=== PATIENT | male | born 1955 | race Caucasian/White ===

== ENCOUNTER 2016-11-29 21:52 | Emergency (ER) | payer OTHER ==
[~2016-11-29] VITALS: Ht 180.3 cm; Wt 95.3 kg
[2016-11-29 22:05] VITALS: BP 161/97
[2016-11-29] MEDS ORDERED: Motrin,Rufen800 MG PO (22:24)
== END 2016-11-29 22:16 | disposition home or self-care (01) ==
LOC: ED 21:52
DX: S46.212A Strain of muscle, fascia and tendon of other parts of biceps, left arm, initial encounter (principal); Z90.89 Acquired absence of other organs; Z98.890 Other specified postprocedural states; X58.XXXA Exposure to other specified factors, initial encounter; Y93.89 Activity, other specified; Y92.69 Other specified industrial and construction area as the place of occurrence of the external cause; Y99.9 Unspecified external cause status

== ENCOUNTER → 2023-05-29 | Day surgery (SDC) | payer BC ==
[~2023-05-29] VITALS: Ht 180.3 cm; Wt 90.7 kg
[~2023-05-29] MED LIST: Motrin,Rufen800 MG PO; SEPTDS PO
[2023-05-29 09:30] VITALS: BP 137/78
[2023-05-29 11:08] VITALS: BP 155/87
[2023-05-29 11:23] VITALS: BP 146/89
[2023-05-29 11:38] VITALS: BP 127/82
[2023-05-29 12:30] VITALS: BP 155/87
== END | disposition home or self-care (01) ==
LOC: SDC 05-27 13:15
PROVIDERS: ATTEND Ophthalmology
DX: H25.11 Age-related nuclear cataract, right eye (principal); Z87.891 Personal history of nicotine dependence; Z98.890 Other specified postprocedural states

== ENCOUNTER 2023-06-13 14:01 | Emergency (ER) | payer BC ==
[~2023-06-13] VITALS: Ht 180.3 cm; Wt 90.7 kg
[~2023-06-13 14:01] MED LIST changes: -SEPTDS PO
[2023-06-13 14:29] VITALS: BP 147/100
[2023-06-13 16:44] LABS: HEMATOCRIT 46.2 % (42.0-52.0); MEAN CELL VOLUME 91.8 fl (80.0-94.0); MEAN CORPUSCULAR HGB CONC 32.7 g/dl (33.0-37.0); MEAN PLATELET VOLUME 9.3 fl (9.6-12.3); PLATELET COUNT AUTOMATED 210 10*3/uL (130-400); RED BLOOD COUNT 5.03 10*6/uL (4.50-5.90); RED CELL DISTRI WIDTH 13.2 % (0-14.5); WHITE BLOOD COUNT 12.8 10*3/uL (4.8-10.8)
[2023-06-13 16:57] LABS: MANUAL DIFF REFLEX YES
[2023-06-13 17:14] LABS: ALKALINE PHOSPHATASE 60 U/L (46-116); BUN 13 mg/dl (9-23); CHLORIDE 101 mmol/L (98-107); SGPT/ALT 19 U/L (5-49); TOTAL PROTEIN 7.7 gm/dL (6.0-8.0)
[2023-06-13 17:25] LABS: PLATELET SUFFICIENCY NORMAL (NORMAL); TOTAL CELLS COUNTED 100 #CELLS
[2023-06-13 17:26] LABS: OVALOCYTES FEW
[2023-06-13 17:31] LABS: ATYPICAL LYMPHS 6 % (0-0)
[2023-06-13] MEDS ORDERED: SEPTDS PO (17:35)
== END 2023-06-13 17:43 | disposition left against medical advice (07) ==
LOC: ED 14:01
PROVIDERS: Internal Medicine
DX: A41.9 Sepsis, unspecified organism (principal); L03.112 Cellulitis of left axilla; F17.210 Nicotine dependence, cigarettes, uncomplicated; Z90.89 Acquired absence of other organs; Z98.890 Other specified postprocedural states